=== PATIENT | female | born 1990 | race Two or more races ===

== ENCOUNTER 2018-12-18 22:41 | Emergency (ER) | payer OTHER ==
[~2018-12-18] VITALS: Ht 162.6 cm; Wt 63.5 kg
[2018-12-18] MEDS ORDERED: TDAP DIPH,PERTUSS,TET VAC/PF 0.5 ML DISP.SYRIN IM ONE ×2 (23:30→23:39)
[2018-12-18 23:59] VITALS: BP 108/68
== END 2018-12-18 23:59 | disposition home or self-care (01) ==
LOC: ER 22:43
DX: S71.152A Open bite, left thigh, initial encounter (principal); W54.0XXA Bitten by dog, initial encounter; Y93.89 Activity, other specified; Y92.89 Other specified places as the place of occurrence of the external cause; Y99.8 Other external cause status
CPT/HCPCS: 90715; A4663